=== PATIENT | male | born 1995 | race Caucasian/White ===

== ENCOUNTER 2017-08-13 13:45 | Emergency (ER) | payer OTHER ==
[2017-08-13 14:00] VITALS: BP 118/65
--- NOTE | 2017-08-13 15:39 | XRAY Report ---
EXAM: LEFT SHOULDER RADIOGRAPHY EXAM DATE: 08/13/2017 03:25 PM. CLINICAL HISTORY: Shoulder pain post snowboarding injury. COMPARISON: None. TECHNIQUE: 3 views. FINDINGS: Bones: Normal. No fracture or bone lesion. Joints: The glenohumeral and acromioclavicular joints are normal. Soft tissues: The visualized hemithorax is unremarkable. No soft tissue swelling. IMPRESSION: Normal shoulder radiography. [facility] Referring Provider Line: [phone] SITE ID: [id number]
--- NOTE | 2017-08-13 15:50 | ED Physician Documentation ---
PD HPI UPPER EXT INJURY - Stated complaint Stated Complaint: L SHOULDER PX - Chief complaint Chief Complaint: Ext Problem - History obtained from History obtained from: Patient - History of Present Illness Location: Left, Shoulder Type of injury: Other (states grabbing a rope tow and felt his arm tug and increase pain over past 2 days.) Where [place] occurred[place] Timing - onset: How many days ago (2) Timing - duration: Days (2) Timing - details: Abrupt onset Pain level max: 8 Pain level now: 6 Improved by: Rest, Immobilization, Other (has not taken any medications) Worsened by: Moving, Palpating Associated symptoms: No: Weakness, Numbness, Tingling, Swelling Contributing factors: No: Anticoagulated, Prior ortho surgery Similar symptoms before: Has not had sx before Recently seen: Not recently seen Review of Systems Musculoskeletal: denies: Neck pain, Back pain Neurologic: denies: Focal weakness, Numbness PD PAST MEDICAL HISTORY - Past Medical History Past Medical History: No - Past Surgical History Past Surgical History: No - Present Medications Home Medications: Ambulatory Orders Medication Instructions Recorded Confirmed Cyclobenzaprine [Flexeril] 10 mg PO TID PRN #20 tablet 08/13/17 Ibuprofen [Motrin] 800 mg PO Q8H PRN #30 tablet 08/13/17 - Allergies Allergies/Adverse Reactions: Allergies Allergy/AdvReac Type Severity Reaction Status Date / Time No Known Drug Allergies Allergy Verified 08/13/17 15:58 - Living Situation Living Arrangement: reports: At home - Social History Does the pt have substance abuse?: No PD ED PE NORMAL - Vitals Vital signs reviewed: Yes - General General: Alert and oriented X 3, No acute distress - Derm Derm: Warm and dry - Extremities Extremities: Other (No bony tenderness about the left shoulder. Does have pain with internal and external rotation as well as abduction. Neurovascularly intact including the axillary nerve. Mild tenderness along the glenohumeral joint, superior aspect.) - Neuro Neuro: Alert and oriented X 3 Results - Vitals Vitals: Vital Signs - 24 hr 08/13/17 13:54 Temperature 37.2 C Heart Rate 63 Respiratory 18 Rate Blood Pressure 118/65 O2 Saturation 100 Oxygen O2 Source Room air - Rads (name of study) Left shoulder x-ray Radiology: Prelim report reviewed, EMP read contemporaneously, See rad report ( Normal) PD MEDICAL DECISION MAKING - ED course Complexity details: reviewed results, re-evaluated patient, considered differential, d/w patient ED course: Patient is a 21-year-old male who presents to the emergency department with what appears to be a left shoulder strain/sprain. Placed in a sling for comfort. Will place on nonsteroidal anti-inflammatory medications as well as muscle relaxants for home and follow-up closely with his doctor. No acute findings on x-ray. No AC joint separation. Doubt significant rotator cuff injury. Patient counseled regarding signs and symptoms for which I believe and urgent re-evaluation would be necessary. Patient with good understanding of and agreement to plan and is comfortable going home at this time This document was made in part using voice recognition software. While efforts are made to proofread this document, sound alike and grammatical errors may occur. Departure - Departure Disposition: 01 Home, Self Care Clinical Impression: Left shoulder strain Qualifiers: Encounter type: initial encounter Qualified Code(s): S46.912A - Strain of unspecified muscle, fascia and tendon at shoulder and upper arm level, left arm , initial encounter Condition: Good Instructions: ED Sprain Shoulder Follow-Up: ELIANA MANDUJANO [Primary Care Provider] - Within 1 week Prescriptions: Cyclobenzaprine [Flexeril] 10 mg PO TID PRN #20 tablet PRN Reason: Spasms Ibuprofen [Motrin] 800 mg PO Q8H PRN #30 tablet PRN Reason: PAIN &/OR FEVER Comments: Return if you worsen. Use the sling as needed for pain. Do not use a sling for more than 2-[address] or operate heavy machinery while taking the Flexeril. Forms: Activity restrictions Discharge Date/Time: 08/13/17 16:04
== END 2017-08-13 16:04 | disposition home or self-care (01) ==
LOC: ED 13:45
DX: S46.912A Strain of unspecified muscle, fascia and tendon at shoulder and upper arm level, left arm, initial encounter (principal); X50.9XXA Other and unspecified overexertion or strenuous movements or postures, initial encounter
CPT/HCPCS: 99283

== ENCOUNTER 2018-02-13 16:36 | Emergency (ER) | payer OTHER ==
[2018-02-13] MEDS ORDERED: ACETAMINOPHEN 325 MG TABLET PO STA (17:43)
[2018-02-13] MEDS ORDERED: IBUPROFEN 400 MG TABLET PO STA (17:43)
--- NOTE | 2018-02-13 18:14 | XRAY Report ---
Procedure Date: 02/13/2018 Accession Number: [id number] / [id number] Procedure: XR - Elbow 3 View RT CPT Code: FULL RESULT: EXAM: RIGHT ELBOW RADIOGRAPHY EXAM DATE: 02/13/2018 06:05 PM. CLINICAL HISTORY: Fell, pain. COMPARISON: None. TECHNIQUE: 3 views. FINDINGS: Bones: Normal. No fractures or bone lesions. Joints: Normal. No effusion. No subluxation. Soft Tissues: Normal. No soft tissue swelling. IMPRESSION: Normal elbow radiography. [facility]
--- NOTE | 2018-02-13 18:14 | ED Physician Documentation ---
History of Present Illness - Stated complaint Stated Complaint: R ELBOW INJ - Chief complaint Chief Complaint: Ext Problem - Additonal information Additional information: hx from pt 22 male working at [email or web address] stepping from raft to boat and fell catching all hi weight on his R elbow and ribs no head neck abd injury Review of Systems Cardiac: reports: Chest pain / pressure (R ribs) Respiratory: denies: Dyspnea GI: denies: Abdominal Pain Musculoskeletal: reports: Joint pain (R elbow). denies: Neck pain Neurologic: denies: Focal weakness, Numbness, Head injury Endocrine: denies: Easy bruising / bleeding Immunocompromised: denies: Immunocompromised PD PAST MEDICAL HISTORY - Past Medical History Cardiovascular: Murmur - Past Surgical History Past Surgical History: No - Present Medications Home Medications: Ambulatory Orders Medication Instructions Recorded Confirmed Cyclobenzaprine [Flexeril] 10 mg PO TID PRN #20 tablet 08/13/17 Ibuprofen [Motrin] 800 mg PO Q8H PRN #30 tablet 08/13/17 Ibuprofen [Motrin] 800 mg PO Q8H PRN #30 tablet 02/13/18 Lidocaine Patch 5% [Lidoderm Patch] 1 each TOP DAILY PRN #10 patch 02/13/18 - Allergies Allergies/Adverse Reactions: Allergies Allergy/AdvReac Type Severity Reaction Status Date / Time No Known Drug Allergies Allergy Verified 02/13/18 16:54 - Social History Does the pt smoke?: No Smoking Status: Never smoker Does the pt drink ETOH?: No Does the pt have substance abuse?: No - Immunizations Immunizations are current?: Yes PD ED PE NORMAL - Vitals Vital signs reviewed: Yes - HEENT HEENT: Atraumatic - Neck Neck: No bony TTP - Cardiac Cardiac: RRR - Respiratory Respiratory: No respiratory distress, Clear bilaterally, Other (TTP ant lat lower ribs s crepitus or bruising) - Abdomen Abdomen: Soft, Non tender, Other (no liver TTP) - Extremities Extremities: Other (R elbow swollen and TTP lateral aspect, no gross dformity, small sup abrasion, MSV intact) - Neuro Neuro: Alert and oriented X 3, No motor deficit, No sensory deficit Results - Vitals Vitals: Vital Signs - 24 hr 02/13/18 16:50 Temperature 37 C Heart Rate 65 Respiratory 16 Rate Blood Pressure 127/81 H O2 Saturation 99 Oxygen O2 Source Room air - Rads (name of study) ribs Radiology: See rad report elbow Radiology: See rad report (no fx) PD MEDICAL DECISION MAKING - Sepsis Event Vital Signs: Vital Signs - 24 hr 02/13/18 16:50 Temperature 37 C Heart Rate 65 Respiratory 16 Rate Blood Pressure 127/81 H O2 Saturation 99 Oxygen O2 Source Room air Departure - Departure Disposition: 01 Home, Self Care Clinical Impression: Contusion of elbow, right Qualifiers: Encounter type: initial encounter Qualified Code(s): S50.01XA - Contusion of right elbow, initial encounter Contusion of rib on right side Qualifiers: Encounter type: initial encounter Qualified Code(s): S20.211A - Contusion of right front wall of thorax, initial encounter Condition: Good Instructions: ED Contusion Rib, ED Contusion Elbow Prescriptions: Ibuprofen [Motrin] 800 mg PO Q8H PRN #30 tablet PRN Reason: Pain Lidocaine Patch 5% [Lidoderm Patch] 1 each TOP DAILY PRN #10 patch PRN Reason: Pain Comments: Thankfully the xray were fine - no rib or elbow fracture. I have prescribed motrin and lidocaine patches for the pain and written a note to rest your arm for a few days. If your arm still hurts to much to use normally in a week, please see your PMD for a recheck and consideration of further imaging Return if worse Forms: Activity restrictions
--- NOTE | 2018-02-13 18:15 | XRAY Report ---
Procedure Date: 02/13/2018 Accession Number: [id number] / [id number] Procedure: XR - Ribs 2 View RT CPT Code: FULL RESULT: EXAM: RIGHT RIB RADIOGRAPHY EXAM DATE: 02/13/2018 06:05 PM. CLINICAL HISTORY: Fell, pain. COMPARISON: Left shoulder radiographs 08/13/2017. TECHNIQUE: 2 views. FINDINGS: Bones: No acute distress fracture. No suspicious focal osseous lesion. BB marker overlies the low lateral right ribs. Lungs: No focal opacities evident. No pneumothorax or significant pleural effusion. Mediastinum: Heart and cardiomediastinal contours are unremarkable. Other: None. IMPRESSION: No acute osseous or cardiopulmonary abnormality. [facility]
[2018-02-13 18:34] VITALS: BP 123/71
== END 2018-02-13 18:33 | disposition home or self-care (01) ==
LOC: ED 16:36
DX: S50.01XA Contusion of right elbow, initial encounter (principal); S20.211A Contusion of right front wall of thorax, initial encounter; V94.0XXA Hitting object or bottom of body of water due to fall from watercraft, initial encounter; Y93.89 Activity, other specified; Y92.79 Other farm location as the place of occurrence of the external cause; Y99.0 Civilian activity done for income or pay
CPT/HCPCS: 1040M; 71100; 73080; 99283; A9270

== ENCOUNTER 2018-04-30 11:43 | Emergency (ER) | payer OTHER ==
[2018-04-30] MEDS ORDERED: BUFFERED LIDOCAINE 10 ML SYRINGE ONE (12:25)
--- NOTE | 2018-04-30 12:41 | ED Physician Documentation ---
PD HPI UPPER EXT INJURY - Stated complaint Stated Complaint: LEFT MIDDLE FINGER LAC - Chief complaint Chief Complaint: Laceration - History obtained from History obtained from: Patient - History of Present Illness Location: Finger Type of injury: Laceration Where injury occurred: Work Timing - onset: Today - Additonal information Additional information: 22-year-old male presents the emergency department for evaluation of a laceration which occurred just prior to arrival. The patient cut his middle finger with a knife. The patient denies any loss of function or any other area of injury. Symptoms are described as mild. Bleeding currently is controlled. The patient's tetanus is up-to-date Review of Systems Constitutional: denies: Fever Cardiac: denies: Chest pain / pressure GI: denies: Abdominal Pain Skin: reports: Laceration (s) Musculoskeletal: reports: Extremity pain Neurologic: denies: Generalized weakness PD PAST MEDICAL HISTORY - Past Medical History Cardiovascular: Murmur - Past Surgical History Past Surgical History: No - Allergies Allergies/Adverse Reactions: Allergies Allergy/AdvReac Type Severity Reaction Status Date / Time No Known Drug Allergies Allergy Verified 04/30/18 11:50 - Social History Does the pt smoke?: No Smoking Status: Never smoker Does the pt drink ETOH?: No Does the pt have substance abuse?: No - Immunizations Immunizations are current?: Yes PD ED PE NORMAL - General General: Alert and oriented X 3, No acute distress - HEENT HEENT: Atraumatic, PERRL, EOMI, Ears normal - Derm Derm: Other (2 cm laceration to the proximal middle finger. The laceration is superficial, there is no tendon or ligamentous involvement) - Neuro Neuro: Alert and oriented X 3, No motor deficit PD ED PE EXPANDED - Extremities ANDRA UE/Hands Visual: 1 - laceration Results - Vitals Vitals: Vital Signs - 24 hr 04/30/18 11:47 Temperature 36.1 C L Heart Rate 70 Respiratory 15 Rate Blood Pressure 116/73 O2 Saturation 98 Oxygen O2 Source Room air Procedures - Laceration (location) Finger Length in cm: 2 Wound type: Linear Neurovascular status: Sensory intact, Motor intact, Vascular intact Tendon involvement: Tendon intact, Tendon Injury Anesthesia: Lidocaine 1% Wound Preparation: Irrigated copiously NS, Wound explored, To the base. No: FB identified, FB removed Deep layer closure: Vicryl, size #-0 - enter number (4) Skin layer closure: Interrupted Other: Patient tolerated well, No complications, Neurovascular intact, Tetanus UTD Complexity: Simple PD MEDICAL DECISION MAKING - ED course ED course: The laceration was closed, the wound was dressed. I recommended having the sutures removed in 7-10 days. I discussed warning signs for infection and recommended returning to the emergency department immediately for any worsening or any concerns. Departure - Departure Disposition: 01 Home, Self Care Clinical Impression: Finger laceration Qualifiers: Encounter type: initial encounter Finger: unspecified finger Damage to nail status: without damage Foreign body presence: unspecified Laterality: unspecified laterality Qualified Code(s): S61.219A - Laceration without foreign body of unspecified finger without damage to nail, initial encounter Condition: Good Instructions: ED Laceration Hand, ED Laceration All Comments: Please have your Primary care physician remove your sutures removed in 7-10 days. Please return to the emergency department immediately for signs of infection, worsening symptoms or any concerns.
[2018-04-30] MEDS ORDERED: BACITRACIN OINT TOP ONE (12:50)
[2018-04-30 12:56] VITALS: BP 114/65
== END 2018-04-30 12:55 | disposition home or self-care (01) ==
LOC: ED 11:43
DX: S61.213A Laceration without foreign body of left middle finger without damage to nail, initial encounter (principal); W26.0XXA Contact with knife, initial encounter; Y99.0 Civilian activity done for income or pay
CPT/HCPCS: 12001; 99282; 99283; A9270